=== PATIENT | male | born 1990 | race Caucasian/White ===

== ENCOUNTER 2017-12-03 20:03 | Emergency (ER) | payer SELFPAY ==
[2017-12-03 20:23] VITALS: BP 119/69
[2017-12-03] MEDS ORDERED: AMOXICILLIN TRIHYDRATE 500 MG CAPSULE PO ONE (21:15)
--- NOTE | 2017-12-03 21:22 | ER Document Report ---
HPI - HPI Quality of pain: Achy Pain Level: 4 Context: Patient is a 27-year-old male who presents to the emergency department with left ear pain. He states that the ear pain is an aching pain. He has been having this pain on and off for the past few weeks. The past 2 days it has been worse. He has not taken anything to make the pain better. His history includes chronic ear infections and psoriasis. He is not taking medications for his psoriasis. He states he has drainage from his ear, which this morning was blood-tinged. Associated Symptoms: None Past Medical History - General Information source: Patient - Social History Smoking Status: Unknown if Ever Smoked Family History: None, Reviewed & Not Pertinent Vertical Provider Document - INFECTION CONTROL TRAVEL OUTSIDE OF THE [place] IN LAST 30 DAYS: No - HEENT HEENT: Atraumatic. negative: Normal ENT Exam - Red left tympanic membrane. Moderate swelling to left ear canal., Tympanic Membrane Red, Tympanic Membrane Bulging Notes: Based off physical exam, I do not suspect patient has mastoiditis at this time. - NECK Neck: Normal Inspection, Supple - RESPIRATORY Respiratory: Breath Sounds Normal - GI/ABDOMEN Gastrointestinal: Abdomen Soft - NEURO Level of Consciousness: Awake, Alert, Appropriate - DERM Integumentary: Warm, Dry Notes: Patient has plaque psoriasis noted to bilateral ears, nape of the neck, and bilateral arms. Course - Vital Signs Vital signs: Temp Pulse Resp BP Pulse Ox 98.6 F 70 16 119/69 99 12/03/17 20:22 12/03/17 20:22 12/03/17 20:22 12/03/17 20:22 12/03/17 20:22 Discharge - Discharge Clinical Impression: Acute otitis externa of left ear, Otitis media of left ear Disposition: HOME, SELF-CARE Additional Instructions: You have been seen in the emergency department for ear pain. You have an inner and outer ear infection in your left ear. You have been prescribed antibiotics for this. Please take all your antibiotics until they are finished. Also, you have been prescribed eardrops. Please place 4 drops in your left ear 4 times a day. If you feel your symptoms are getting worse, you develop a fever, develop hearing loss, or any symptoms that are worrisome to you, please return to the emergency department as soon as possible. Prescriptions: Amoxicillin Trihydrate [Amoxil 875 mg Tablet] 1 tab PO BID #20 tablet Neomy Sulf/Polymyx B Sulf/Hc [Cortisporin Otic Susp] 4 drop .ROUTE QID #1 bottle
== END 2017-12-03 21:52 | disposition home or self-care (01) ==
LOC: ER 20:03
DX: H60.92 Unspecified otitis externa, left ear (principal); H66.92 Otitis media, unspecified, left ear; L40.0 Psoriasis vulgaris; H92.02 Otalgia, left ear
CPT/HCPCS: 99282

== ENCOUNTER 2019-05-07 06:42 | Emergency (ER) | payer SELFPAY ==
[2019-05-07] MEDS ORDERED: ACETAMINOPHEN 325 MG TABLET PO ONE (06:55)
--- NOTE | 2019-05-07 07:31 | ER Document Report ---
ED General - General Chief Complaint: Back Pain Stated Complaint: BACK PAIN Time Seen by Provider: 05/07/19 07:30 Mode of Arrival: Ambulatory Information source: Patient TRAVEL OUTSIDE OF THE [place] IN LAST 30 DAYS: No - HPI Onset: Other - 2 weeks Onset/Duration: Gradual, Worse Quality of pain: Throbbing Severity: Moderate Context: Patient is a 29-year-old male presenting to the emergency department chief complaint of back pain. Patient states is been ongoing for the past 2 weeks worse the past couple of days. Patient states he has concerned that it may be a kidney stone. Patient states most of all this began approximately 9 years ago with an injury. Patient denies any reinjury. Patient is otherwise alert and oriented and in no acute distress. Associated symptoms: None Exacerbated by: Movement, Walking Relieved by: Denies Similar symptoms previously: Yes Recently seen / treated by doctor: No - Related Data Allergies/Adverse Reactions: No Known Allergies Allergy (Verified 05/07/19 06:48) Past Medical History - General Information source: Patient - Social History Smoking Status: Current Every Day Smoker Cigarette use (# per day): Yes Chew tobacco use (# tins/day): No Smoking Education Provided: Yes Frequency of alcohol use: Social Drug Abuse: None Family History: None, Reviewed & Not Pertinent Patient has suicidal ideation: No Patient has homicidal ideation: No Skin Medical History: Reports Hx Psoriasis Surgical Hx: Negative Review of Systems - Review of Systems Constitutional: No symptoms reported EENT: No symptoms reported Cardiovascular: No symptoms reported Respiratory: No symptoms reported Gastrointestinal: No symptoms reported Genitourinary: No symptoms reported Male Genitourinary: No symptoms reported Musculoskeletal: Back pain Skin: No symptoms reported Hematologic/Lymphatic: No symptoms reported Neurological/Psychological: No symptoms reported Physical Exam - Vital signs Vitals: Temp Pulse BP Pulse Ox 98.0 F 87 156/75 H 97 05/07/19 06:47 05/07/19 06:47 05/07/19 06:47 05/07/19 06:47 - Notes Notes: PHYSICAL EXAMINATION: GENERAL: Well-appearing, well-nourished and in no acute distress. HEAD: Atraumatic, normocephalic. EYES: Pupils equal round and reactive to light, extraocular movements intact, sclera anicteric, conjunctiva are normal. ENT: nares patent, oropharynx clear without exudates. Moist mucous membranes. NECK: Normal range of motion, supple without lymphadenopathy, no appreciable JVD LUNGS: Lungs clear to auscultation bilaterally and equal. No wheezes rales or rhonchi. HEART: Regular rate and rhythm without murmurs ABDOMEN: Soft, nontender, normal bowel sounds. No guarding, no rebound. No masses appreciated. EXTREMITIES: Active full range of motion, no pitting or edema. No cyanosis. 2+ pulses x4 Back: Patient has tenderness to the right lumbar region without ecchymosis step- offs or point tenderness. NEUROLOGICAL: At time of evaluation the patient is alert and oriented x3, Glascow coma scale of 15, cranial nerves II through XII are grossly intact, sensations intact, motor is intact, there are no signs of nystagmus, there is no pronator drift, there is no facial asymmetry, tongue protrusion is midline, reflexes are equal and bilateral, patient ambulates without ataxia, patient answers all questions appropriately follows commands appropriately. SKIN: Warm, patient has marked psoriasis. Course - Re-evaluation Re-evalutation: 05/07/19 07:47 Urinalysis has been ordered. 05/07/19 08:33 On reevaluation patient is resting comfortably in hospital bed. I discussed the laboratory results with the patient we will be treating the patient strictly as a back pain muscle strain exacerbation. Patient is agreeable with same. Patient will be given prescription for muscle relaxer and recommended to follow- up as needed. - Vital Signs Vital signs: Temp Pulse Resp BP Pulse Ox 98.0 F 87 156/75 H 97 05/07/19 06:47 05/07/19 06:47 05/07/19 06:47 05/07/19 06:47 Discharge - Discharge Clinical Impression: Back pain at L4-L5 level, Muscle strain Condition: Stable Disposition: HOME, SELF-CARE Instructions: Ice Packs ([facility]), Low Back Pain ([facility]), Muscle Strain ([facility]) Prescriptions: Cyclobenzaprine HCl [Flexeril 10 mg Tablet] 10 mg PO TIDP PRN #15 tab PRN Reason: Forms: Return to Work
[2019-05-07 08:06] LABS: APPEARANCE,URINE CLEAR; BILIRUBIN,URINE NEGATIVE (NEGATIVE); COLOR,URINE YELLOW; GLUCOSE, URINE NEGATIVE (NEGATIVE); KETONES,URINE NEGATIVE (NEGATIVE); LEUKOCYTE ESTERASE,URINE NEGATIVE (NEGATIVE); NITRITE,URINE NEGATIVE (NEGATIVE); PROTEIN,URINE NEGATIVE (NEGATIVE); URINE SPECIFIC GRAVITY 1.021; UROBILINOGEN,URINE NEGATIVE mg/dL (<2.0)
[2019-05-07 08:43] VITALS: BP 125/68
== END 2019-05-07 08:44 | disposition home or self-care (01) ==
LOC: ER 06:42
DX: M54.5 Low back pain (principal); T14.8XXA Other injury of unspecified body region, initial encounter; X58.XXXA Exposure to other specified factors, initial encounter; F17.210 Nicotine dependence, cigarettes, uncomplicated; L40.9 Psoriasis, unspecified
CPT/HCPCS: 81001; 99283